=== PATIENT | female | born 1970 | race Caucasian/White ===

== ENCOUNTER 2021-11-03 13:38 | Outpatient (CLI) | payer OTHER, SELFPAY ==
--- NOTE | 2021-11-03 14:00 | CRLHL7_ITS ---
For Patients: As a result of the Century Cures Act, medical imaging exams and procedure reports are released immediately into your electronic medical record. You may view this report before your referring provider. If you have questions, please contact your health care provider. BILATERAL SCREENING MAMMOGRAM WITH COMPUTER-AIDED DETECTION TECHNIQUE: CC and MLO views were obtained. These mammographic images have been obtained using full-field digital technique. These mammographic images were interpreted with the benefit of computer-aided detection. COMPARISON FILM: 12/21/19, 08/26/17, 08/11/16. FINDINGS: The breasts are heterogeneously dense, which may obscure small masses IMPRESSION: There is no radiographic evidence for malignancy. ASSESSMENT: BI-RADS Category 1: Negative RECOMMENDATION: Routine screening mammogram in 1 year. A lay language report of this examination will be provided to the patient. Ethan Jones M.D. Diagnostic/Musculoskeletal Radiologist [email or web address] YOAN/Dictated by: Ethan Jones MD @ 11/04/2021 7:32:00 AM (Electronically Signed)
== END 2021-11-03 13:39 | disposition home or self-care (01) ==
LOC: MAMMO 13:38
PROVIDERS: PCP Family Medicine; Visit Provider Family Medicine
DX: Z12.31 Encounter for screening mammogram for malignant neoplasm of breast (principal); R92.2 Inconclusive mammogram
CPT/HCPCS: 77063; 77067

== ENCOUNTER 2022-01-06 14:46 | Outpatient (CLI) | payer OTHER, SELFPAY ==
--- NOTE | 2022-01-06 15:01 | CRLHL7_ITS ---
For Patients: As a result of the Century Cures Act, medical imaging exams and procedure reports are released immediately into your electronic medical record. You may view this report before your referring provider. If you have questions, please contact your health care provider. ULTRASOUND LOWER EXTREMITY VENOUS INSUFFICIENCY BILATERAL CLINICAL HISTORY: Painful varicose veins. COMPARISON: None. TECHNIQUE: The lower extremity veins were examined with can-scale ultrasound, color-flow and Doppler spectral analysis. Compressibility of the veins by transducer pressure was used to evaluate the presence or absence of DVT/SVT at sites per exam specific protocol. Assessment of venous competence was performed by Doppler spectral analysis and was performed and documented at exam specific sites in an upright position for venous insufficiency studies. FINDINGS There is no evidence of DVT or deep venous incompetence in the bilateral lower extremities. The deep venous systems are compressible with augmentation of flow post compression. Phasic flow is identified. Right lower extremity: The greater saphenous vein is noted to be incompetent at the proximal thigh (reflux duration 2 seconds, 5 mm), as well as at the midthigh (reflux duration 3 seconds, 6 mm), proximal calf (reflux duration 2 seconds, 3 mm) and mid calf (reflux duration 2 seconds, 2.7 mm). Left lower extremity: No evidence of superficial venous incompetence. IMPRESSION: 1. No evidence for DVT or deep venous incompetence in the bilateral lower extremities. 2. 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 3. Left extremity: No evidence of superficial venous incompetence. Dictated by Luis M Pryor MD @ 01/07/2022 12:09:53 PM (Electronically Signed)
== END 2022-01-06 14:47 | disposition home or self-care (01) ==
LOC: US 14:51
PROVIDERS: PCP Family Medicine; Visit Provider Family Medicine
DX: I83.93 Asymptomatic varicose veins of bilateral lower extremities (principal)
CPT/HCPCS: 93970

== ENCOUNTER 2022-01-16 07:50 | Outpatient (CLI) | payer OTHER, SELFPAY | END 2022-01-16 07:51 | disposition home or self-care (01) | PROVIDERS: PCP Family Medicine; Visit Provider Internal Medicine | DX: Z12.11 Encounter for screening for malignant neoplasm of colon (principal) | CPT/HCPCS: 45378; J2250; J3010 ==

== ENCOUNTER 2022-10-23 10:25 | Outpatient (CLI) | payer OTHER, SELFPAY ==
[2022-10-24 18:04] LABS: Hep A Ab, IgM Negative (Negative); Hep B Core Ab, IgM Negative (Negative); Hep B Surface Antigen Negative (Negative); Hep C Ab by CIA Index 0.06 IV; Hep C Ab by CIA Interp Negative (Negative)
== END 2022-10-23 10:26 | disposition home or self-care (01) ==
LOC: NFLDREF 10:25
PROVIDERS: PCP Family Medicine; Visit Provider Family Medicine
DX: Z01.419 Encounter for gynecological examination (general) (routine) without abnormal findings (principal); R79.89 Other specified abnormal findings of blood chemistry; E55.9 Vitamin D deficiency, unspecified; E78.5 Hyperlipidemia, unspecified; N95.2 Postmenopausal atrophic vaginitis
CPT/HCPCS: 80053; 80061; 80074; 82306

== ENCOUNTER 2022-12-18 07:30 | Outpatient (CLI) | payer OTHER, SELFPAY ==
--- NOTE | 2022-12-18 07:45 | CRLHL7_ITS ---
For Patients: As a result of the Century Cures Act, medical imaging exams and procedure reports are released immediately into your electronic medical record. You may view this report before your referring provider. If you have questions, please contact your health care provider. BILATERAL SCREENING MAMMOGRAM WITH COMPUTER-AIDED DETECTION TECHNIQUE: CC and MLO views were obtained. These mammographic images have been obtained using full-field digital technique. These mammographic images were interpreted with the benefit of computer-aided detection. COMPARISON FILM: 11/03/21, 12/21/19, 08/26/17. FINDINGS: There are scattered areas of fibroglandular density IMPRESSION: There is no radiographic evidence for malignancy. ASSESSMENT: BI-RADS Category 1: Negative RECOMMENDATION: Routine screening mammogram in 1 year. A lay language report of this examination will be provided to the patient. Bharat Benito M.D. Diagnostic Radiologist [email or web address] Transcribed: 12:29 p.[email or web address] [email or web address]/Dictated by: Bharat Benito MD @ 12/18/2022 10:05:00 AM (Electronically Signed)
== END 2022-12-18 07:31 | disposition home or self-care (01) ==
LOC: MAMMO 07:31
PROVIDERS: PCP Family Medicine; Visit Provider Family Medicine
DX: Z12.31 Encounter for screening mammogram for malignant neoplasm of breast (principal)
CPT/HCPCS: 77067; T1013

== ENCOUNTER 2023-10-29 07:41 | Outpatient (CLI) | payer OTHER, SELFPAY | END 2023-10-29 07:42 | disposition home or self-care (01) | PROVIDERS: PCP Family Medicine; Visit Provider Family Medicine | DX: Z00.00 Encounter for general adult medical examination without abnormal findings (principal); R79.89 Other specified abnormal findings of blood chemistry; E55.9 Vitamin D deficiency, unspecified; E78.5 Hyperlipidemia, unspecified | CPT/HCPCS: 80053; 80061; 82306 ==

== ENCOUNTER 2024-10-27 07:35 | Outpatient (CLI) | payer OTHER, SELFPAY | END 2024-10-27 07:36 | disposition home or self-care (01) | LOC: NFLDREF 10-31 14:31 | PROVIDERS: PCP Family Medicine; Referring Provider Family Medicine; Visit Provider Family Medicine | DX: E78.5 Hyperlipidemia, unspecified (principal); R79.89 Other specified abnormal findings of blood chemistry; E55.9 Vitamin D deficiency, unspecified | CPT/HCPCS: 80053; 80061; 82306 ==